=== PATIENT | female | born 1995 | race African-American/Black ===

== ENCOUNTER 2018-09-23 17:22 | Emergency (ER) | payer SELFPAY ==
[2018-09-23 17:47] LABS: Bilirubin Negative (Negative); Blood, Urine Large (Negative); Clarity CLOUDY (Clear); Glucose, Urine (Dipstick) Negative (Negative); Leukocyte Large (Negative); Nitrite Negative (Negative); Pregnancy Test - Urine (BHCG) POSITIVE (Negative); Pregu Control Background? CLEAR/WHITE (CLR/WHITE); Pregu Control Bar Appear? YES (CONTROL BAR); Protein, Urine (Dipstick) Trace mg/dL (Neg-Trace); Specific Gravity 1.007 (1.002-1.036); Specific Gravity, Urine 1.007 (1.002-1.036); Urobilinogen 0.2 mg/dL (0.2-1.0); pH, Urine 6.5 (5.0-9.0)
[2018-09-23 17:48] LABS: Bacteria/HPF None Seen HPF (None Seen); Hyaline Casts/LPF 0-3 HYALINE CAST LPF (0-3 Hyaline); Pathc Cast-AUWi Flag 0.43 (0-2.49)
[2018-09-23 17:50] LABS: Yeast-AUWi Flag 66.5 (0-25.0)
[2018-09-23 17:59] LABS: RBC/HPF GREATER THAN 50-TNTC HPF (0-3)
[2018-09-23 18:00] LABS: Yeast-All Forms None Seen HPF (None Seen)
[2018-09-23 19:23] LABS: #Basophils 0.1 thou/uL (0.0-0.2); #Eosinphils 0.1 thou/uL (0.0-0.7); #Lymphocytes 2.6 thou/uL (1.20-3.40); #Monocytes 0.6 thou/uL (0.11-0.59); #Neutrophils 6.8 thou/uL (1.40-6.50); %Basophils 1.1 % (0.0-1.0); %Eosinophils 1.3 % (0.0-10.0); %Lymphocytes 25.7 % (21.0-51.0); %Monocytes 5.7 % (0.0-10.0); %Neutrophils 66.3 % (42.0-75.0); Hemoglobin 10.5 g/dL (12.0-16.0); Mean Corpuscular HGB CONC 32.8 g/dL (32.0-36.0); Mean Corpuscular Hemoglobin 28.3 pg (27.0-31.0); Mean Corpuscular Volume 86.3 fL (78.0-98.0); Mean Platelet Volume 7.6 fL (7.4-10.4); Platelet Count 392 thou/uL (130-400); RBC Distribution Width 13.9 % (11.5-14.5); Red Blood Cell (RBC) Count 3.69 mill/uL (4.20-5.40); White Blood Cell (WBC) Count 10.3 thou/uL (4.8-10.8)
[2018-09-23 19:44] LABS: ALT (SGPT) 13 U/L (8-55); AST (SGOT) 14 U/L (5-34); Albumin 3.6 g/dL (3.5-5.0); Alkaline Phosphatase 57 U/L (40-150); Anion Gap 12 mmol/L (10-20); BUN (Urea Nitrogen) 7 mg/dL (7.0-18.7); Bilirubin, Total 0.2 mg/dL (0.2-1.2); Calc. Creatinine Clearance 0 mL/min (70-130); Calcium 8.9 mg/dL (7.8-10.44); Carbon Dioxide 23 mmol/L (22-29); Chloride 105 mmol/L (98-107); Estimated GFR-MDRD Greater than 90; Globulin 3.4 g/dL (2.4-3.5); Glucose 121 mg/dL (70-105); Potassium 3.7 mmol/L (3.5-5.1); Sodium 136 mmol/L (136-145)
[2018-09-23] MEDS ORDERED: cefTRIAXone\\ROCEPHIN 1 GM VIAL ONE (20:27)
[2018-09-23] MEDS ORDERED: Lidocaine 1% PF 5 ML VIAL ONE (20:27)
== END 2018-09-23 20:51 | disposition home or self-care (01) ==
LOC: ERS 17:22
DX: O99.89 Other specified diseases and conditions complicating pregnancy, childbirth and the puerperium (principal); R10.9 Unspecified abdominal pain; O20.9 Hemorrhage in early pregnancy, unspecified; Z3A.01 Less than 8 weeks gestation of pregnancy
CPT/HCPCS: 36415; 80053; 81003; 81015; 81025; 84702; 85025; 86850; 86900; 86901; 96372; J0696; J2001

== ENCOUNTER 2018-09-24 06:17 | Emergency (ER) | payer SELFPAY ==
[2018-09-24] MEDS ORDERED: Acetaminophen 500 MG TAB ONE (06:46)
--- NOTE | 2018-09-24 08:24 | ULT ---
TRANSABDOMINAL TRANSVAGINAL PELVIC ULTRASOUND: INDICATION: History of pelvic pain and bleeding; history of a beta HCG level of 424.13 on 09/23/2018 and a beta H CG level on 09/24/2018 of 350.59. TECHNIQUE: Marcos scale, color Doppler, and vascular duplex with spectral analysis was performed of the pelvis via transabdominal and transvaginal approach. FINDINGS: The uterus measures 11.1 x 6.9 x 7.5 cm and is diffusely heterogeneous. The endometrial stripe is th ickened measuring 1.6 cm. There is a 1.5 cm mixed echogenic but predominantly hypoechoic fluid colle ction within the lower uterine segment which may reflect an area of intrauterine hemorrhage or retain ed products of conception. There is some increased vascularity surrounding this region. The right ovary measures 3.1 x 2.1 x 3 cm. There is a 1.3 cm cyst within the right ovary. The left ovary measures 2.8 x 1.8 x 1.8 cm. Normal flow is seen to both ovaries. A minimal amount of free fluid is seen within the cul-de-sac. IMPRESSION: 1. No intrauterine gestation is demonstrated. There is a peripherally vascular hypoechoic fluid col lection seen within the lower uterine segment suspicious for some retained products of conception mihir t potentially are expelling. Findings are suspicious for an in progress, especially in ligh t of a decreasing beta HCG level. Continued clinical followup is recommended. 2. Minimal free fluid in the pelvis. POS: [facility]
== END 2018-09-24 10:05 | disposition home or self-care (01) ==
LOC: ERS 06:17
DX: O03.9 Complete or unspecified spontaneous abortion without complication (principal); N39.0 Urinary tract infection, site not specified
CPT/HCPCS: 36415; 76856; 84702